=== PATIENT | male | born 1980 | race Caucasian/White ===

== ENCOUNTER 2016-11-05 10:11 | Day surgery (SDC) | payer MEDICAID ==
[2016-11-05] MEDS ORDERED: LR 1,000 ML IV ONE (11:27)
[2016-11-05] MEDS ORDERED: LIDOCAINE 1% 5 ML SDV ID PRN (11:27)
[2016-11-05] MEDS ORDERED: PROPOFOL/EMULSION 500 MG/50 ML BOTTLE IV ONE (12:09)
[2016-11-05] MEDS ORDERED: PROPOFOL 200 MG/20 ML VIAL ONE (12:23)
--- NOTE | 2016-11-05 13:05 | GPN ---
[f rep st] PROCEDURE NOTE DATE OF PROCEDURE: 11/05/2016 INDICATIONS: Hematochezia. CONSENT: Informed consent was obtained from the patient. All questions and concerns were answered. Risks, benefits, and alternatives were explained. MEDICATIONS: Propofol per Anesthesia. DESCRIPTION OF PROCEDURE: After adequate sedation was achieved, the colonoscope was advanced under direct vision through the anal orifice and as far as the cecum and terminal ileum. The scope was then slowly withdrawn, and the colon and ileum were examined. Retroflexion was performed in the ascending colon and in the rectum. Approximately 10 cm of ileum total were examined. The prep was good. The toleration of the procedure was good. COMPLICATIONS: None. ESTIMATED BLOOD LOSS: None. FINDINGS: 1. Normal terminal ileum. 2. Normal-appearing colon mucosa with no polyps or colitis, or other concerning lesions. 3. Large internal hemorrhoids were seen. IMPRESSION: Large internal hemorrhoids, likely the source of hematochezia. RECOMMENDATIONS: 1. The patient will be set up for banding of hemorrhoids, assuming bleeding continues to be present. 2. He will resume his regular diet, and standard post colonoscopy instructions will be given to the patient. /[id number]/MODL MTDD
== END 2016-11-05 15:04 | disposition home or self-care (01) ==
LOC: FSGY 10:11
PROVIDERS: ATTEND Internal Medicine
PROC: 0DJD8ZZ Inspection of Lower Intestinal Tract, Via Natural or Artificial Opening Endoscopic (ICD-10-PCS; principal; 2016-11-05 12:15)
DX: K64.8 Other hemorrhoids (principal); E27.40 Unspecified adrenocortical insufficiency
CPT/HCPCS: J2704

== ENCOUNTER 2018-09-02 14:18 | Emergency (ER) | payer SELFPAY ==
[2018-09-02 14:22] VITALS: BP 96/66
== END 2018-09-02 16:08 | disposition left against medical advice (07) ==
DX: Z53.21 Procedure and treatment not carried out due to patient leaving prior to being seen by health care provider (principal)

== ENCOUNTER 2018-11-17 14:43 | Emergency (ER) | payer SELFPAY, MEDICAID | END 2018-11-17 18:08 | disposition home or self-care (01) ==